=== PATIENT | female | born 1925 | race Caucasian/White ===

== ENCOUNTER 2016-10-21 13:43 | Emergency (ER) | payer MEDICARE, BC ==
[2016-10-21] MEDS ORDERED: NS 0.9% 1000 ML* 1,000 ML IV ONE (14:42)
[2016-10-21 15:02] LABS: Hematocrit 32 % (35-47); Hemoglobin 10.4 g/dl (12.0-16.0); Mean Corpuscular HGB Conc 32 g/dl (31-36); Mean Corpuscular Hemoglobin 28 pg (27-31); Mean Corpuscular Volume 87 fL (80-97); Mean Platelet Volume 8 um3 (7.4-10.4); Red Blood Count 3.72 10^6/ul (4.0-5.4); Red Cell Distribution Width 15 % (10.5-15); White Blood Count 7.1 10^3/ul (3.5-10.8)
[2016-10-21 15:09] LABS: Urine Bacteria Absent (Absent); Urine Bilirubin Negative (Negative); Urine Glucose Negative (Negative); Urine Nitrite Negative (Negative)
[2016-10-21 15:14] LABS: Troponin I 0.03 ng/mL (<0.04)
--- NOTE | 2016-10-21 15:17 | RAD ---
INDICATION: Weakness. COMPARISON: Comparison is made with a prior chest x-ray study from October 08, 2016. TECHNIQUE: Dual-energy PA and lateral views of the chest were obtained. FINDINGS: The heart is within normal limits in size. Mediastinal and hilar contours appear within normal limits. There is a small infiltrate present within the lingula which appears slightly improved from the prior exam. In addition there is a small nodular infiltrate which projects laterally over the right upper lobe which is not seen on the prior study. There is flattening of the diaphragms consistent with chronic obstructive pulmonary disease. No pleural effusion is seen. IMPRESSION: 1. NODULAR INFILTRATE WHICH PROJECTS OVER THE RIGHT UPPER LOBE, RECOMMEND FOLLOW-UP CHEST X-RAYS TO RESOLUTION. 2. SMALL LINGULAR INFILTRATE SLIGHTLY IMPROVED FROM THE PRIOR STUDY.
[2016-10-21 15:25] LABS: Albumin 3.4 g/dL (3.2-5.2); BUN/Creatinine Ratio 18.3 (8-20); C Reactive Protein 14.96 mg/L (< 5.00); Calcium 9.9 mg/dL (8.6-10.3); EGFR African American 27.2 (>60); EGFR Non-African American 21.1 (>60); Globulin 3.7 g/dL (2-4); Magnesium 2.1 mg/dL (1.9-2.7); Potassium 5.1 mmol/L (3.5-5.0); Total Bilirubin 0.3 mg/dL (0.2-1.0); Total Protein 7.1 g/dL (6.4-8.9)
[2016-10-21 15:44] LABS: TSH (Thyroid Stimulating Horm) 1.97 mcIU/mL (0.34-5.60)
[2016-10-21 18:36] VITALS: BP 124/76
--- NOTE | 2016-10-30 04:48 | ED ---
Keysha Rachel Adam, scribed for Enio Mccullough MD on 10/21/16 at 1437 . Complex/Multi-Sys Presentation - HPI Summary HPI Summary: An 89 y/o female presents to the ED with her daughter c/o generalized weakness with decreased oral intake, brief periods of confusion, and weight loss (5 pounds) since being discharged from [facility] for pneumonia on 10/11/16. Daughter brought patient to hospital today because of the period of confusion last night. She denies CP, abdominal pain, UTI symptoms, or diarrhea. Patient has a PMHx of hypertension and renal failure. FHx is negative. - History Of Current Complaint Chief Complaint: EDWeakness Time Seen by Provider: 10/21/16 14:13 Hx Obtained From: Patient, Family/Steamfitter - Daughter Onset/Duration: Gradual Onset Timing: Constant Severity Currently: Moderate Severity Initially: Moderate Aggravating Factor(s): Patient has not "bounced back" after being discharged from [facility] for pneumonia at the end of September. Associated Signs And Symptoms: Positive: Confusion - Brief episodes, per daughter, Weakness, Decreased Oral Intake, Other - Weight loss. Negative: Chest Pain, Diarrhea, Dysuria Related History: Recent Hospitalization - For pneumonia on 10/09/16 - Allergies/Home Medications Allergies/Adverse Reactions: Allergies Allergy/AdvReac Type Severity Reaction Status Date / Time No Known Allergies Allergy Verified 10/21/16 13:56 PMH/Surg Hx/FS Hx/Imm Hx Endocrine/Hematology History: Reports: Hx Anticoagulant Therapy - Aspirin. Denies: Hx Diabetes, Hx Thyroid Disease Cardiovascular History: Reports: Hx Coronary Artery Disease, Hx Hypertension Denies: Hx Congestive Heart Failure, Hx Deep Vein Thrombosis, Hx Myocardial Infarction, Hx Pacemaker/ICD Respiratory History: Reports: Hx Pneumonia Denies: Hx Asthma, Hx Chronic Obstructive Pulmonary Disease (COPD), Hx Lung Cancer, Hx Pulmonary Embolism GI History: Denies: Hx Gall Bladder Disease, Hx Gastrointestinal Bleed, Hx Ulcer, Hx Urosepsis History: Reports: Hx Renal Disease - Renal failure--stage 4. 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 Negative: Fever Eyes: Negative ENT: Negative Cardiovascular: Negative Negative: Chest Pain Respiratory: Negative Positive: Other - Decreased oral intake Genitourinary: Negative Positive: no symptoms reported Musculoskeletal: Negative Skin: Negative Neurological: Other - Periods of confusion Positive: Weakness Psychological: Normal All Other Systems Reviewed And Are Negative: Yes Physical Exam Triage Information Reviewed: Yes Vital Signs On Initial Exam: Initial Vitals Temp Pulse Resp BP Pulse Ox 98.4 F 77 22 157/62 94 10/21/16 13:53 10/21/16 13:53 10/21/16 13:53 10/21/16 13:53 10/21/16 13:53 Vital Signs Reviewed: Yes Appearance: Positive: Well-Appearing, No Pain Distress Skin: Positive: Warm, Skin Color Reflects Adequate Perfusion, Dry Head/Face: Positive: Normal Head/Face Inspection Eyes: Positive: EOMI, ZANA ENT: Positive: Normal ENT inspection Neck: Positive: Supple, Nontender Respiratory/Lung Sounds: Positive: Clear to Auscultation, Breath Sounds Present Cardiovascular: Positive: RRR Abdomen Description: Positive: Nontender, Soft Bowel Sounds: Positive: Present Musculoskeletal: Positive: Normal, Strength/ROM Intact Neurological: Positive: Normal, Sensory/Motor Intact, Alert, Oriented to Person Place, Time Psychiatric: Positive: Affect/Mood Appropriate Diagnostics - Vital Signs Vital Signs Temp Pulse Resp BP Pulse Ox 10/21/16 14:06 63 18 95 10/21/16 13:53 98.4 F 77 22 157/62 94 - Laboratory Lab Results: Lab Results 10/21/16 10/21/16 10/21/16 Range/Units 14:15 14:15 14:15 WBC 7.1 (3.5-10.8) 10^3/ul RBC 3.72 L (4.0-5.4) 10^6/ul Hgb 10.4 L (12.0-16.0) g/dl Hct 32 L (35-47) % MCV 87 (80-97) fL MCH 28 (27-31) pg MCHC 32 (31-36) g/dl RDW 15 (10.5-15) % Plt Count 528 H D (150-450) 10^3/ul MPV 8 (7.4-10.4) um3 Neut % (Auto) 72.6 (38-83) % Lymph % (Auto) 19.6 L (25-47) % Gray % (Auto) 5.1 (1-9) % Eos % (Auto) 1.2 (0-6) % Baso % (Auto) 1.5 (0-2) % Absolute Neuts (auto) 5.1 (1.5-7.7) 10^3/ul Absolute Lymphs (auto) 1.4 (1.0-4.8) 10^3/ul Absolute Monos (auto) 0.4 (0-0.8) 10^3/ul Absolute Eos (auto) 0.1 (0-0.6) 10^3/ul Absolute Basos (auto) 0.1 (0-0.2) 10^3/ul Absolute Nucleated RBC 0 10^3/ul Nucleated RBC % 0 INR (Anticoag Therapy) (0.89-1.11) APTT (26.0-36.3) seconds Sodium 142 (133-145) mmol/L Potassium 5.1 H (3.5-5.0) mmol/L Chloride 108 (101-111) mmol/L Carbon Dioxide 25 (22-32) mmol/L Anion Gap 9 (2-11) mmol/L BUN 40 H (6-24) mg/dL Creatinine 2.19 H (0.51-0.95) mg/dL Est GFR ( Amer) 27.2 (>60) Est GFR (Non-Af Amer) 21.1 (>60) BUN/Creatinine Ratio 18.3 (8-20) Glucose 101 H (70-100) mg/dL Lactic Acid 0.8 (0.5-2.0) mmol/L Calcium 9.9 (8.6-10.3) mg/dL Magnesium 2.1 (1.9-2.7) mg/dL Total Bilirubin 0.30 (0.2-1.0) mg/dL AST 16 (13-39) U/L ALT 12 (7-52) U/L Alkaline Phosphatase 67 (34-104) U/L Troponin I 0.03 (<0.04) ng/mL C-Reactive Protein 14.96 H (< 5.00) mg/L Total Protein 7.1 (6.4-8.9) g/dL Albumin 3.4 (3.2-5.2) g/dL Globulin 3.7 (2-4) g/dL Albumin/Globulin Ratio 0.9 L (1-3) Lipase 68 (11.0-82.0) U/L TSH 1.97 (0.34-5.60) mcIU/mL Urine Color Urine Appearance Urine pH (5-9) Ur Specific [place] (1.010-1.030) Urine Protein (Negative) Urine Ketones (Negative) Urine Blood (Negative) Urine Nitrate (Negative) Urine Bilirubin (Negative) Urine Urobilinogen (Negative) Ur Leukocyte Esterase (Negative) Urine WBC (Auto) (Absent) Urine RBC (Auto) (Absent) Ur Squamous Epith Cells (Absent) Urine Bacteria (Absent) Urine Glucose (Negative) Urine Ascorbic Acid (Negative) 10/21/16 10/21/16 Range/Units 14:28 16:19 WBC (3.5-10.8) 10^3/ul RBC (4.0-5.4) 10^6/ul Hgb (12.0-16.0) g/dl Hct (35-47) % MCV (80-97) fL MCH (27-31) pg MCHC (31-36) g/dl RDW (10.5-15) % Plt Count (150-450) 10^3/ul MPV (7.4-10.4) um3 Neut % (Auto) (38-83) % Lymph % (Auto) (25-47) % Gray % (Auto) (1-9) % Eos % (Auto) (0-6) % Baso % (Auto) (0-2) % Absolute Neuts (auto) (1.5-7.7) 10^3/ul Absolute Lymphs (auto) (1.0-4.8) 10^3/ul Absolute Monos (auto) (0-0.8) 10^3/ul Absolute Eos (auto) (0-0.6) 10^3/ul Absolute Basos (auto) (0-0.2) 10^3/ul Absolute Nucleated RBC 10^3/ul Nucleated RBC % INR (Anticoag Therapy) 0.98 (0.89-1.11) APTT 25.2 L (26.0-36.3) seconds Sodium (133-145) mmol/L Potassium (3.5-5.0) mmol/L Chloride (101-111) mmol/L Carbon Dioxide (22-32) mmol/L Anion Gap (2-11) mmol/L BUN (6-24) mg/dL Creatinine (0.51-0.95) mg/dL Est GFR ( Amer) (>60) Est GFR (Non-Af Amer) (>60) BUN/Creatinine Ratio (8-20) Glucose (70-100) mg/dL Lactic Acid (0.5-2.0) mmol/L Calcium (8.6-10.3) mg/dL Magnesium (1.9-2.7) mg/dL Total Bilirubin (0.2-1.0) mg/dL AST (13-39) U/L ALT (7-52) U/L Alkaline Phosphatase (34-104) U/L Troponin I (<0.04) ng/mL C-Reactive Protein (< 5.00) mg/L Total Protein (6.4-8.9) g/dL Albumin (3.2-5.2) g/dL Globulin (2-4) g/dL Albumin/Globulin Ratio (1-3) Lipase (11.0-82.0) U/L TSH (0.34-5.60) mcIU/mL Urine Color Yellow Urine Appearance Clear Urine pH 5.0 (5-9) Ur Specific [place] 1.012 (1.010-1.030) Urine Protein Negative (Negative) Urine Ketones Negative (Negative) Urine Blood Negative (Negative) Urine Nitrate Negative (Negative) Urine Bilirubin Negative (Negative) Urine Urobilinogen Negative (Negative) Ur Leukocyte Esterase 1+ H (Negative) Urine WBC (Auto) 1+(6-10/hpf) H (Absent) Urine RBC (Auto) Absent (Absent) Ur Squamous Epith Cells Present H (Absent) Urine Bacteria Absent (Absent) Urine Glucose Negative (Negative) Urine Ascorbic Acid * H (Negative) Result Diagrams: 10/21/16 14:15 10/21/16 14:15 Lab Statement: Any lab studies that have been ordered have been reviewed, and results considered in the medical decision making process. - Radiology CXR Xray Interpretation: Positive (See Comments) - 1. NODULAR INFILTRATE WHICH PROJECTS OVER THE RIGHT UPPER LOBE, RECOMMEND FOLLOW-UP CHEST X-RAYS TO RESOLUTION. 2. SMALL LINGULAR INFILTRATE SLIGHTLY IMPROVED FROM THE PRIOR STUDY. Radiology Interpretation Completed By: Radiologist Complex Multi-Symp Course/Dx Assessment/Plan: DISCHARGE HOME STABLE - Diagnoses Provider Diagnoses: DEHYDRATION, WEAKNESS Discharge - Discharge Plan Condition: Stable Disposition: HOME Prescriptions: Amlodipine Besylate-Benazepril [Lotrel 5-10 mg] 1 cap PO DAILY #14 cap Atorvastatin* [Lipitor 20 MG*] 20 mg PO QPM #14 tab Desvenlafaxine (NF) [Pristiq (NF)] 50 mg PO DAILY #14 tab Hydrocortisone TAB* [Cortef TAB*] 10 mg PO DAILY #14 tab Temazepam 7.5 mg Cap (Nf) [Temazepam] 7.5 mg PO BEDTIME #14 cap MDD 7.5 Patient Education Materials: Dehydration (ED), Weakness (ED) Referrals: Mayur Stein NP [Primary Care Provider] - Additional Instructions: FOLLOW UP WITH YOUR DOCTOR. RETURN TO THE EMERGENCY DEPARTMENT FOR ANY WORSENING OF YOUR CONDITION OR QUESTIONS OR CONCERNS. The documentation as recorded by the Keysha clinton Adam accurately reflects the service I personally performed and the decisions made by me, Enio Mccullough MD.
== END 2016-10-21 18:34 | disposition home or self-care (01) ==
LOC: ED 13:43
DX: E86.0 Dehydration (principal); R63.4 Abnormal weight loss; R41.0 Disorientation, unspecified; R53.1 Weakness; Z87.891 Personal history of nicotine dependence; Z87.01 Personal history of pneumonia (recurrent); Z79.01 Long term (current) use of anticoagulants; Z86.79 Personal history of other diseases of the circulatory system
CPT/HCPCS: 36415; 71020; 80053; 81003; 81015; 83605; 83690; 83735; 84443; 84484; 85025; 85610; 85730; 86140; 87086; 96360; 99282